=== PATIENT | female | born 1955 | race Two or more races ===

== ENCOUNTER 2024-10-07 09:25 | Outpatient (RCR) | payer MEDICARE, SELFPAY ==
--- NOTE | 2024-10-07 10:00 | XR_ITS ---
Examination: JASON, hepatobiliary radioisotope scan Gallbladder ejection fraction study. Date and time of exam: October 07, 2024 0929 hrs. Indications: Epigastric pain heartburn 6 months Technique: 5.9 mCi of 99M Hepatolite administered. Serial imaging then obtained from immediate through 60 minutes. 1.2 mcg selective catheter Kinevac administered for gallbladder ejection fraction study. Findings: Radioisotope activity within the liver is reasonably homogenous. Gallbladder, common bile duct small bowel activity noted Impression: Gallbladder activity Normal gallbladder ejection fraction, 41%
== END 2024-10-12 23:59 | disposition home or self-care (01) ==
LOC: SNUC 09:25
PROVIDERS: PCP Nurse Practitioner Family; Referring Provider Internal Medicine Gastroenterology; Visit Provider Internal Medicine Gastroenterology
DX: R10.11 Right upper quadrant pain (principal); R10.12 Left upper quadrant pain
CPT/HCPCS: 78227; A9537; J2805